=== PATIENT | male | born 1960 | race African-American/Black ===

== ENCOUNTER 2019-04-21 11:37 | Emergency (ER) | payer SELFPAY ==
[~2019-04-21] VITALS: Ht 180.3 cm; Wt 112.9 kg
[2019-04-21 14:22] VITALS: BP 147/114
[2019-04-21] MEDS ORDERED: ACETAMINOPHEN/CODEINE#3 (300/30mg) TAB PO ONE (14:30)
== END 2019-04-21 16:02 | disposition home or self-care (01) ==
LOC: ER 11:37
DX: S00.03XA Contusion of scalp, initial encounter (principal); M53.3 Sacrococcygeal disorders, not elsewhere classified; F17.290 Nicotine dependence, other tobacco product, uncomplicated; W19.XXXA Unspecified fall, initial encounter; Y93.89 Activity, other specified; Y99.8 Other external cause status; Y92.89 Other specified places as the place of occurrence of the external cause
CPT/HCPCS: 70450; 72220

== ENCOUNTER 2019-12-23 11:35 | Inpatient (IN) | payer OTHER ==
[~2019-12-23] VITALS: Ht 180.3 cm; Wt 118.5 kg
[2019-12-23] MEDS ORDERED: SODIUM CHLORIDE 0.9% 1,000 ML IV ONE ×2 (11:44)
[2019-12-23 12:14] LABS: Basophils # (auto) 0.1 10 ^3/uL (0-0.2); Eosinophils # (auto) 0.2 10 ^3/uL (0-0.8); Lymphocytes # (auto) 2.2 10 ^3/uL (0.4-5.4)
[2019-12-23 12:15] LABS: Basophils % (auto) 0.7 % (0.0-2.0); Eosinophils % (auto) 1.4 % (0.0-7.0); Hematocrit 44.3 % (41.0-53.0); Hemoglobin 14.8 g/dL (13.5-17.5); Lymphocytes % (auto) 20.4 % (10.0-50.0); Mean Corpuscular Hemoglobin 25.1 pg (28.0-32.0); Mean Corpuscular Hgb Conc. 33.3 g/dL (32.0-36.0); Mean Corpuscular Volume 75.4 fL (80.0-100.0); Monocytes # (auto) 1.5 10 ^3/uL (0-1.3); Monocytes % (auto) 14.1 % (0.0-12.0); Neutrophils # (auto) 6.8 10 ^3/uL (1.6-8.6); Neutrophils % (auto) 63.4 % (37.0-80.0); Nucleated Red Blood Cells % 0.1 %; Platelet Count (auto) 300 10^3/uL (140-450); Red Blood Cells 5.87 10^6/uL (4.5-5.90); Red Cell Distribution Width 17.2 % (11.8-14.3); White Blood Cell 10.8 10^3/uL (4.4-10.8)
[2019-12-23 12:23] LABS: Chloride 108 mmol/L (98-107); Potassium 3.8 mmol/L (3.5-5.1); Sodium 138 mmol/L (136-145)
[2019-12-23 12:29] LABS: Urine Bacteria NONE SEEN /hpf (None Seen); Urine Blood 2+ /uL (Negative); Urine Mucus FEW (None Seen); Urine Specific Gravity 1.027 (1.001-1.035); Urine WBC <1 /hpf (0 - 3)
[2019-12-23] MEDS ORDERED: ONDANSETRON HCL 4 MG/2 ML VIAL IV ONE (12:30)
[2019-12-23] MEDS ORDERED: PIPERACILLIN-TAZOB 3.375GM 100 ML IV ONE (12:30)
[2019-12-23] MEDS ORDERED: MORPHINE SULF INJ 2 MG/ML SYRINGE 1ML IV ONE (12:30)
[2019-12-23 12:31] LABS: Alanine Aminotransferase 21 U/L (16-61); Albumin 3.5 g/dL (3.4-5.0); Alkaline Phosphatase 87 U/L (45-117); Anion Gap 5 (5-15); Aspartate Aminotransferase 13 U/L (15-37); BUN/Creatinine Ratio 12.2; Bilirubin, Total 0.3 mg/dL (0.2-1.0); Blood Urea Nitrogen 14 mg/dL (7-18); Calcium 8.6 mg/dL (8.5-10.1); Carbon Dioxide 25 mmol/L (21-32); GFR African American 84 mL/min; GFR Non-African American 70 mL/min; Glucose 108 mg/dL (74-106); Total Protein 7.7 g/dL (6.4-8.2)
[2019-12-23] MEDS ORDERED: NITROGLYCERIN 0.4 MG SL TAB SL PRN (13:15)
[2019-12-23] MEDS: metroNIDAZOLE 500MG/100ML 100 ML IV SCH ×2 (14:46→23:13)
[2019-12-23] MEDS: ONDANSETRON HCL 4 MG/2 ML VIAL IV PRN (17:25)
[2019-12-23] MEDS: MORPHINE SULF INJ 2 MG/ML SYRINGE 1ML IV PRN ×2 (17:25→20:37)
[2019-12-23 21:36] VITALS: BP 119/89
[2019-12-23 21:40] VITALS: BP 119/89
[2019-12-24] MEDS: MORPHINE SULF INJ 2 MG/ML SYRINGE 1ML IV PRN ×3 (01:50→22:26)
[2019-12-24] MEDS: ONDANSETRON HCL 4 MG/2 ML VIAL IV PRN (01:55)
[2019-12-24 04:43] VITALS: BP 127/93
[2019-12-24] MEDS: metroNIDAZOLE 500MG/100ML 100 ML IV SCH ×3 (05:33→21:49)
[2019-12-24 06:00] LABS: Basophils # (auto) 0.1 10 ^3/uL (0-0.2); Monocytes # (auto) 1.3 10 ^3/uL (0-1.3); Nucleated Red Blood Cells % 0.1 %
[2019-12-24 06:02] LABS: Basophils % (auto) 1.1 % (0.0-2.0); Eosinophils # (auto) 0.2 10 ^3/uL (0-0.8); Eosinophils % (auto) 1.8 % (0.0-7.0); Lymphocytes # (auto) 1.7 10 ^3/uL (0.4-5.4); Lymphocytes % (auto) 19.2 % (10.0-50.0); Mean Corpuscular Hemoglobin 24.6 pg (28.0-32.0); Mean Corpuscular Hgb Conc. 32.4 g/dL (32.0-36.0); Monocytes % (auto) 14.3 % (0.0-12.0); Neutrophils # (auto) 5.6 10 ^3/uL (1.6-8.6); Neutrophils % (auto) 63.6 % (37.0-80.0); Platelet Count (auto) 278 10^3/uL (140-450); Red Blood Cells 5.26 10^6/uL (4.5-5.90); Red Cell Distribution Width 16.6 % (11.8-14.3); White Blood Cell 8.8 10^3/uL (4.4-10.8)
[2019-12-24 06:24] LABS: Albumin 3.1 g/dL (3.4-5.0); BUN/Creatinine Ratio 12.7; Bilirubin, Total 0.4 mg/dL (0.2-1.0); Calcium 8.2 mg/dL (8.5-10.1); Potassium 3.7 mmol/L (3.5-5.1); Total Protein 6.8 g/dL (6.4-8.2)
[2019-12-24] MEDS: cefTRIAXone 1GM/50ML D5W 50 ML IV SCH (08:51)
[2019-12-24 09:00] VITALS: BP 125/82
[2019-12-24] MEDS: amLODIPine BESYLATE 5 MG TAB PO SCH (09:21)
[2019-12-24] MEDS ORDERED: ACETAMINOPHEN 500 MG TAB PO PRN ×2 (12:15→13:00)
[2019-12-24 13:00] VITALS: BP_SYST 106; BP_SYST 143; BP_DIAS 70; BP_DIAS 98
[2019-12-24 17:00] VITALS: BP 122/80
[2019-12-24] MEDS: CYCLOBENZAPRINE HCL 10 MG TAB PO SCH (17:38)
[2019-12-24 22:01] VITALS: BP 129/92
[2019-12-25 05:00] VITALS: BP 131/82
[2019-12-25] MEDS: metroNIDAZOLE 500MG/100ML 100 ML IV SCH (06:32)
[2019-12-25] MEDS: CYCLOBENZAPRINE HCL 10 MG TAB PO SCH (06:32)
[2019-12-25 09:03] VITALS: BP 125/85
[2019-12-25] MEDS: cefTRIAXone 1GM/50ML D5W 50 ML IV SCH (09:58)
[2019-12-25] MEDS: amLODIPine BESYLATE 5 MG TAB PO SCH (09:59)
[2019-12-25 13:12] VITALS: BP 124/81
== END 2019-12-25 13:45 | disposition home or self-care (01) | DRG 392 ==
LOC: ER 11:35 → OVERFLOW 11:36 → WEST WING 21:49
PROVIDERS: ADMIT Nurse Practitioner Acute Care; ATTEND Family Medicine
DX: K57.32 Diverticulitis of large intestine without perforation or abscess without bleeding (principal); E66.9 Obesity, unspecified; E86.0 Dehydration; F17.200 Nicotine dependence, unspecified, uncomplicated; G89.29 Other chronic pain; I10 Essential (primary) hypertension; K59.00 Constipation, unspecified; M19.90 Unspecified osteoarthritis, unspecified site; M48.02 Spinal stenosis, cervical region; Z79.899 Other long term (current) drug therapy; Z68.36 Body mass index [BMI] 36.0-36.9, adult
CPT/HCPCS: 36415; 71045; 72040; 74176; 80053; 81001; 83605; 84484; 85025; 87040; 93005; G0378; J0696; J2405; J2543; J3490